=== PATIENT | male | born 1945 | race Caucasian/White ===

== ENCOUNTER → 2019-12-31 16:11 | Outpatient (CLI) | payer MEDICARE, OTHER, SELFPAY ==
[2020-01-03 02:00] LABS: COVID19 Sendout Not Detected (Not Detect)
== END ==
PROVIDERS: Visit Provider Physician Assistant
DX: Z11.59 Encounter for screening for other viral diseases (principal)
CPT/HCPCS: 87635

== ENCOUNTER → 2020-01-03 14:40 | Outpatient (CLI) | payer MEDICARE, OTHER, SELFPAY ==
--- NOTE | 2020-01-03 | DI.NM.S_ITS ---
PROCEDURE: NM EXERCISE TREADMILL NON NUC COMPARISON: None. INDICATIONS: Chest pain, unspecified FINDINGS: The patient exercised for 10 minutes and 48 seconds using the standard justine protocol, reaching 112% of maximum predicted heart rate. Normal BP response to exercise. No ST-T changes to suggest ischemia. Frequent PVCs at peak exercise and occasional PACs during exercise and recovery. IMPRESSION: low risk, normal treadmill ECG only stress test. Frequent PVCs at peak exercise. 1) No ECG changes to suggest ischemia. 2) Frequent PVCs at peak exercise. Occasional PACs during exercise and recovery. 3) No angina during the study. 4) Excellent exercise tolerance (12.8 METs, MARY -57%). Target heart rate achieved. Appropriate BP response to exercise. 5) No prior stress test available for comparison. Dictated by: Nahed Frazier MD on 01/03/2020 at 17:24 Approved by: Nahed Frazier MD on 01/03/2020 at 17:27
== END ==
PROVIDERS: PCP Internal Medicine; Referring Provider Internal Medicine; Visit Provider Internal Medicine
DX: R07.9 Chest pain, unspecified (principal)
CPT/HCPCS: 93017